=== PATIENT | male | born 1990 | race Caucasian/White ===

== ENCOUNTER 2022-03-29 11:08 | Emergency (ER) | payer BC, SELFPAY ==
[2022-03-29 11:10] VITALS: BP 132/82; PULSE 61; RESP 16; TEMP 36.3; O2SAT 99
[2022-03-29] MEDS: ACETAMINOPHEN 325 MG TABLET 650 MG PO (11:40)
[2022-03-29 12:00] VITALS: BP 124/74; PULSE 70; RESP 16; TEMP 36.5; O2SAT 100
[2022-03-29 12:01] LABS: Strep Group A RT-PCR Negative (Negative)
[2022-03-29 12:08] LABS: Influenza A QL RT-PCR Negative (Negative); Influenza B QL RT-PCR Negative (Negative); SARS-CoV-2 RNA PCR Negative (Negative)
--- NOTE | 2022-03-29 12:36 | ED.URI ---
HPI - URI/Sore Throat General Chief Complaint: Upper Respiratory Infection Stated Complaint: SORE THROAT COUGH Time Seen by Provider: 03/29/22 11:12 Source: patient and RN notes reviewed Mode of arrival: ambulatory Limitations: no limitations History of Present Illness MD elicited complaint: sore throat and nasal congestion Onset (ago): day(s) (1) Consistency: constant Severity: mild Pain scale (0-10): 2 Able to tolerate fluids by mouth: Yes Exacerbating factors: nothing Relieving factors: nothing Associated symptoms: sore throat Treatments prior to arrival: none Related Data Allergies Allergy/AdvReac Type Severity Reaction Status Date / Time No Known Allergies Allergy Verified 03/29/22 11:18 Review of Systems Review of Systems: All systems reviewed & are unremarkable except as noted in HPI and below Constitutional: Constitutional: Reports no additional constitutional complaints Eyes: Eyes: Reports no additional eye complaints ENT: Reports system reviewed and no additional complaints, except as documented and Reports sore throat Cardiovascular: Cardiovascular: Reports no additional cardiovascular complaints Respiratory: Respiratory: Reports no additional respiratory complaints Gastrointestinal: Gastrointestinal: Reports no additional gastrointestinal complaints Musculoskeletal: Musculoskeletal: Reports no additional musculoskeletal complaints Integumentary/Breasts: Skin/Breast: Reports system reviewed and no additional complaints, except as docu Neurologic: Reports system reviewed and no additional complaints, except as documented Psychiatric: Psychiatric: Reports no additional psychiatric complaints Endocrine: Endocrine: Reports no additional endocrine complaints Hematologic/Lymphatic: Hematologic/Lymphatic: Reports no additional hematologic/lymphatic complaints Allergic/Immunologic: Allergic/Immunologic: Reports no additional allergic/immunologic complaints PMFSH Past Medical History Medical History Pharyngitis Viral infection Exam Const: General: healthy appearing and no acute distress Nutritional Appearance: well nourished Orientation/consciousness: patient oriented x3 Limitations: no limitations HENMT: Head: normal to inspection Ears: external ears normal, TM's normal bilaterally and EAC's normal General nose exam: Normal external nose present and Normal nares present Face and sinus: normal facial exam and sinuses nontender Mouth: Yes Normal oral and palatal mucosa present and Yes moist mucous membranes Teeth and gingiva: dentition normal Other: minimal pharyngeal redness Eyes: Conjunctivae: conjunctivae normal Pupils: Equal, round and reactive pupils present EOM: EOMs intact bilaterally Neck: Neck: normal visual inspection, no lymphadenopathy and no meningeal signs Chest: Chest palpation & inspection: normal inspection of the chest Resp: Effort & Inspection: normal respiratory effort Auscultation: clear to auscultation bilaterally Cardio: Rate: regular rate Rhythm: regular rhythm GI: GI Palp: Yes Soft to palpation and No Tenderness to palpation present (GI) Auscultation: normal bowel sounds : General: Yes bladder normal to palpation and Yes no CVA tenderness Back/Spine/Pelvis: Back: no CVA tenderness Skin: General skin exam: normal color Rashes: no rashes Wounds: no wounds Neuro: General: patient oriented x3, moves all extremities, no meningeal signs, no focal motor deficits and CN's II-XI intact bilaterally Cranial nerves: Yes Equal, round and reactive pupils present and Yes Nystagmus not present Speech: normal speech Gait exam (Neuro): Normal gait present Extrem: General: normal to inspection and no pedal edema Psych: Mental Status: mental status grossly normal Affect: normal affect Attitude: cooperative Course Course Emergency Course: Pt was stable in the ED, less sore throat Reevaluation(s) Reeva
== END 2022-03-29 12:49 | disposition home or self-care (01) ==
PROVIDERS: Emergency Provider Emergency Medicine
DX: J06.9 Acute upper respiratory infection, unspecified (principal); B34.9 Viral infection, unspecified; J02.9 Acute pharyngitis, unspecified; Z20.822 Contact with and (suspected) exposure to COVID-19
CPT/HCPCS: 87502; 87651; 99283; A9270; C9803; U0003; U0005

== ENCOUNTER 2022-04-01 18:15 | Emergency (ER) | payer BC, SELFPAY ==
[2022-04-01 18:25] VITALS: BP 129/87; PULSE 60; RESP 14; TEMP 36.5; O2SAT 100
[2022-04-01] MEDS: TETANUS,DIPHTHERIA,AC PERTUSSIS ADULT 0.5 ML (ADACEL) IM (18:49)
--- NOTE | 2022-04-01 18:52 | ED.SKABFB ---
HPI - Skin/Abscess/Foreign Bdy General Chief complaint: Skin/Abscess/Foreign Body Stated complaint: fish hook Time Seen by Provider: 04/01/22 18:17 Source: patient Mode of arrival: ambulatory Limitations: no limitations History of Present Illness HPI narrative: this is a 31-year-old gentleman that presents with a fishhook to the right upper cheek area that current earlier today while he was fishing with his son. Currently there is no redness no erythema no drainage no bleeding no numbness or tingling to the facial area. Onset (ago): hour(s) Tetanus up to date: no Location: face Severity: mild Related Data Allergies Allergy/AdvReac Type Severity Reaction Status Date / Time No Known Allergies Allergy Verified 04/01/22 18:34 Review of Systems Review of Systems: All systems reviewed & are unremarkable except as noted in HPI and below PMFSH Past Medical History Medical History Pharyngitis Viral infection Exam Const: General: healthy appearing and no acute distress Limitations: no limitations HENMT: Head: normal to inspection Other: [place] imbedded to his right upper cheek area Eyes: Conjunctivae: conjunctivae normal Direct Ophthalmoscopy: no photophobia Neck: Neck: normal visual inspection Resp: Effort & Inspection: normal respiratory effort Auscultation: clear to auscultation bilaterally Cardio: Rate: regular rate Rhythm: regular rhythm GI: Auscultation: normal bowel sounds Skin: General skin exam: normal color Wounds: wounds noted Neuro: General: patient oriented x3 Extrem: General: normal to inspection and no clubbing, cyanosis or edema Psych: Mental Status: mental status grossly normal Affect: normal affect Course Course Emergency Course: with 1% lidocaine injected into the right upper cheek area and small lori was made with an 11 blade and the fishhook was removed. Vital Signs Vital signs: Vital Signs Temperature 36.5 C 04/01/22 18:25 Pulse Rate 60 04/01/22 18:25 Respiratory Rate 14 04/01/22 18:25 Blood Pressure 129/87 04/01/22 18:25 Pulse Oximetry 100 04/01/22 18:25 Oxygen Delivery Room Air 04/01/22 18:25 Temperature 36.5 C 04/01/22 18:25 Pulse Rate 60 04/01/22 18:25 Respiratory Rate 14 08/20/22 18:25 Blood Pressure 129/87 04/01/22 18:25 Pulse Oximetry 100 04/01/22 18:25 Oxygen Delivery Room Air 04/01/22 18:25 Procedures Foreign Body Removal Foreign Body #1: Foreign Body Removal Date: 04/01/22 Foreign Body Removal Time: 18:55 Time Out Performed: yes Site: right, face and other Description of foreign body: fish hook Sedation/Analgesia: none Technique: manual removal Confirmed by:: direct visualization Complications: none Post-procedure exam: awake, alert Foreign Body Removal Narrative: 5Cc of 1% lidocaine was injected into the right upper [place] for the cheek area Critical Care Time Critical Care Time Critical Care Time: No Discharge Plan Discharge Clinical Impression: Foreign body (FB) in soft tissue Patient Disposition: Home, Self-Care Condition: Stable Instructions: Antibiotic Form, Soft Tissue Foreign Body (ED) Additional Instructions: can use [id number] Neosporin daily x3 days, and follow up primary care physician if symptoms persist or worsen. Prescriptions: No Action amoxicillin 875 mg tablet 875 mg PO Q12H Qty: 20 0RF Mucinex DM 30-600 mg tablet extended release 12 hr 1 tablet PO Q12H Qty: 20 0RF Follow-up/Referrals: Tyson,Jak Araujo MD [Primary Care Provider] - Time of Disposition: 18:59
[2022-04-01] MEDS: LIDOCAINE HCL 1% LOCAL INJ 10 ML VIAL 7 ML INFILTRATE (18:53)
--- NOTE | 2022-04-01 19:06 | PC.NURSE ---
nurse to nurse report completed with RN Angelique
[2022-04-01 19:16] VITALS: BP 128/75; PULSE 58; RESP 17; TEMP 36.2; O2SAT 100
== END 2022-04-01 19:17 | disposition home or self-care (01) ==
PROVIDERS: Emergency Provider Emergency Medicine; PCP Family Medicine
DX: S01.441A Puncture wound with foreign body of right cheek and temporomandibular area, initial encounter (principal); X58.XXXA Exposure to other specified factors, initial encounter
CPT/HCPCS: 90471; 90715; 99282

== ENCOUNTER 2022-05-19 09:56 | Emergency (ER) | payer BC, SELFPAY ==
--- NOTE | ~2022-05-19 | XR_ITS ---
EXAMINATION: XR hand RT min 3V DATE: 05/19/2022 10:32 INDICATION: Right hand pain. TECHNIQUE: 3 views of right hand were obtained. COMPARISON: None. FINDINGS: Bone alignment is normal. No fracture. Joint spaces are well maintained. IMPRESSION: 1. Normal right hand. Reviewed, dictated and finalized at location B. IMPRESSION: 1. Normal right hand.
[2022-05-19 10:06] VITALS: BP 132/80; PULSE 60; RESP 16; TEMP 36.4; O2SAT 100
--- NOTE | 2022-05-19 10:34 | ED.UPPEXIN ---
HPI - Extremity Injury (Upper) General Chief Complaint: Extremity Injury, Upper Stated Complaint: R hand injury Time Seen by Provider: 05/19/22 10:00 Source: patient and RN notes reviewed Mode of arrival: ambulatory Limitations: no limitations History of Present Illness complaint: injury to: right and hand Onset (ago): minute(s) (30) Other Extremity Injury: Right: hand Other injuries: none Place: outdoors Severity: mild Severity scale (1-10): 4 Relieving factors: immobilization Exacerbating factors: movement of extremity Associated symptoms: denies other symptoms Related Data Allergies Allergy/AdvReac Type Severity Reaction Status Date / Time No Known Allergies Allergy Verified 05/19/22 10:11 Review of Systems Review of Systems: All systems reviewed & are unremarkable except as noted in HPI and below Constitutional: Constitutional: Reports no additional constitutional complaints Eyes: Eyes: Reports no additional eye complaints ENT: Reports system reviewed and no additional complaints, except as documented Cardiovascular: Cardiovascular: Reports no additional cardiovascular complaints Respiratory: Respiratory: Reports no additional respiratory complaints Gastrointestinal: Gastrointestinal: Reports no additional gastrointestinal complaints Musculoskeletal: Musculoskeletal: Reports arthralgias Integumentary/Breasts: Skin/Breast: Reports system reviewed and no additional complaints, except as docu Neurologic: Reports system reviewed and no additional complaints, except as documented Psychiatric: Psychiatric: Reports no additional psychiatric complaints Endocrine: Endocrine: Reports no additional endocrine complaints Hematologic/Lymphatic: Hematologic/Lymphatic: Reports no additional hematologic/lymphatic complaints Allergic/Immunologic: Allergic/Immunologic: Reports no additional allergic/immunologic complaints PMFSH Past Medical History Medical History Contusion of right hand Pharyngitis Viral infection Exam Const: General: healthy appearing, no acute distress and well nourished Nutritional Appearance: well nourished Orientation/consciousness: patient oriented x3 Limitations: no limitations HENMT: Head: normal to inspection Ears: external ears normal, TM's normal bilaterally and EAC's normal Face/Nose/Sinus: Normal external nose present, Normal nares present, normal facial exam and sinuses nontender Face and sinus: normal facial exam and sinuses nontender Mouth: Yes Normal oral and palatal mucosa present and Yes moist mucous membranes Teeth and gingiva: dentition normal Throat: posterior oropharynx normal Eyes: Conjunctivae: conjunctivae normal Pupils: Equal, round and reactive pupils present EOM: EOMs intact bilaterally Neck: Neck: normal visual inspection, no lymphadenopathy and no meningeal signs Chest: Chest palpation & inspection: normal inspection of the chest Resp: Effort & Inspection: normal respiratory effort Auscultation: clear to auscultation bilaterally Cardio: Rate: regular rate Rhythm: regular rhythm GI: GI Palp: Yes Soft to palpation and No Tenderness to palpation present (GI) Auscultation: normal bowel sounds : General: Yes bladder normal to palpation and Yes no CVA tenderness Back/Spine/Pelvis: Back: no CVA tenderness Skin: General skin exam: normal color Rashes: no rashes Wounds: no wounds Neuro: General: patient oriented x3, moves all extremities, no meningeal signs, no focal motor deficits and CN's II-XI intact bilaterally Cranial nerves: Yes Equal, round and reactive pupils present and Yes Nystagmus not present Speech: normal speech Gait exam (Neuro): Normal gait present Extrem: General: no pedal edema Other: dorsal 1st interspace of the right hand minimal 3.2 cm x 3/4 cm abrasion. no marked right hand swelling, deformity or acute redness. full ROM right hand. Psych: Mental Status: mental st
[2022-05-19] MEDS: IBUPROFEN 400 MG TABLET 800 MG PO (10:48)
[2022-05-19 11:19] VITALS: BP 125/75; PULSE 63; RESP 16; TEMP 36.4; O2SAT 100
== END 2022-05-19 11:24 | disposition home or self-care (01) ==
PROVIDERS: Emergency Provider Emergency Medicine
DX: S60.221A Contusion of right hand, initial encounter (principal)
CPT/HCPCS: 73130; 99283; A9270

== ENCOUNTER 2023-04-15 06:12 | Emergency (ER) | payer BC, SELFPAY ==
[2023-04-15] VITALS (9 sets, daily range): BP systolic 108–132; BP diastolic 74–89; PULSE 62–96; RESP 16–18; TEMP 36.8–37; O2SAT 99–100
--- NOTE | ~2023-04-15 | XR_ITS ---
EXAMINATION: XR hand RT min 3V INDICATION: Right hand pain TECHNIQUE: Three views of the right hand are obtained. COMPARISON: 05/19/2022 FINDINGS: There is dorsal dislocation of the bases of the fourth and fifth metacarpals with respect t o the hamate. No fracture is identified. There is medial soft tissue swelling of the hand. IMPRESSION: 1. Dorsal dislocation of the fourth and fifth metacarpals with respect to the hamate. Reviewed, dictated and finalized at location A. IMPRESSION: 1. Dorsal dislocation of the fourth and fifth metacarpals with respect to the h amate.
--- NOTE | ~2023-04-15 | XR_ITS ---
EXAMINATION: XR hand RT min 3V INDICATION: Metacarpal reduction TECHNIQUE: Three views of the right hand are obtained. COMPARISON: 0651 hours FINDINGS: The previously described dorsal dislocations of the fourth and fifth metacarpal bases have been reduced. A tiny osseous fragment is seen on the lateral view dorsal to the carpal metacarpal denis nts. There is associated soft tissue swelling. IMPRESSION: 1. Reduced dislocations of the fourth and fifth metacarpal bases. 2. Small dorsal fracture fragment of unclear origin, possibly the fourth metacarpal base. Reviewed, dictated and finalized at location A. IMPRESSION: 1. Reduced dislocations of the fourth and fifth metacarpal bases. 2. Small dorsal fracture fragment of unclear origin, possibly the fourth metaca rpal base.
--- NOTE | 2023-04-15 06:39 | ED.UPPEXIN ---
HPI - Extremity Injury (Upper) General Chief Complaint: Extremity Injury, Upper <Rich Echavarria MD - Last Filed: 04/15/23 07:20> Stated Complaint: Right Hand Injury <Rich Echavarria MD - Last Filed: 04/15/23 07:20> Time Seen by Provider: 04/15/23 07:29 <Rich Echavarria MD - Last Filed: 04/15/23 07:20> Source: patient <Rich Echavarria MD - Last Filed: 04/15/23 07:20> Mode of arrival: ambulatory <Rich Echavarria MD - Last Filed: 04/15/23 07:20> Limitations: no limitations <Rich Echavarria MD - Last Filed: 04/15/23 07:20> History of Present Illness HPI narrative: 32-year-old male presents to the ER with -- right hand deformity. He has deformity over the 4th and the 5th metacarpals. He punched a wall 1 hour ago. <Rich Echavarria MD - Last Filed: 04/15/23 07:20> MD complaint: injury to: right and hand <Rich Echavarria MD - Last Filed: 04/15/23 07:20> Onset (ago): hour(s) ( 1 hour ago) <Rich Echavarria MD - Last Filed: 04/15/23 07:20> Other injuries: none <Rich Echavarria MD - Last Filed: 04/15/23 07:20> Handedness: right <Rich Echavarria MD - Last Filed: 04/15/23 07:20> Place: home <Rich Echavarria MD - Last Filed: 04/15/23 07:20> Severity: severe <Rich Echavarria MD - Last Filed: 04/15/23 07:20> Relieving factors: immobilization <Rich Echavarria MD - Last Filed: 04/15/23 07:20> Exacerbating factors: movement of extremity <Rich Echavarria MD - Last Filed: 04/15/23 07:20> Context: direct blow <Rich Echavarria MD - Last Filed: 04/15/23 07:20> Associated symptoms: denies other symptoms <Rich Echavarria MD - Last Filed: 04/15/23 07:20> Treatments prior to arrival: cold therapy <Rich Echavarria MD - Last Filed: 04/15/23 07:20> Related Data Allergies/Adverse Reactions: Allergies Allergy/AdvReac Type Severity Reaction Status Date / Time No Known Allergies Allergy Verified 05/19/22 10:11 <Rich Echavarria MD - Last Filed: 04/15/23 07:20> Review of Systems Review of Systems: All systems reviewed & are unremarkable except as noted in HPI and below <Rich Echavarria MD - Last Filed: 04/15/23 07:20> Constitutional: Constitutional: Reports as per HPI and Reports no additional constitutional complaints <Rich Echavarria MD - Last Filed: 04/15/23 07:20> Eyes: Eyes: Reports as per HPI and Reports no additional eye complaints <Rich Echavarria MD - Last Filed: 04/15/23 07:20> ENT: Reports system reviewed and no additional complaints, except as documented and Reports as per HPI <Rich Echavarria MD - Last Filed: 04/15/23 07:20> Cardiovascular: Cardiovascular: Reports as per HPI and Reports no additional cardiovascular complaints <Rich Echavarria MD - Last Filed: 04/15/23 07:20> Respiratory: Respiratory: Reports as per HPI and Reports no additional respiratory complaints <Rich Echavarria MD - Last Filed: 04/15/23 07:20> Gastrointestinal: Gastrointestinal: Reports as per HPI and Reports no additional gastrointestinal complaints <Rich Echavarria MD - Last Filed: 04/15/23 07:20> Genitourinary: Genitourinary: Reports no additional male genitourinary complaints and Reports as per HPI <Rich Echavarria MD - Last Filed: 04/15/23 07:20> Musculoskeletal: Musculoskeletal: Reports no additional musculoskeletal complaints and Reports as per HPI <Rich Echavarria MD - Last Filed: 04/15/23 07:20> Integumentary/Breasts: Skin/Breast: Reports system reviewed and no additional complaints, except as docu and Reports as per HPI <Rich Echavarria MD - Last Filed: 04/15/23 07:20> Neurologic: Reports system reviewed and no additional complaints, except as documented and Reports as per HPI <Rich Echavarria MD - Last Filed: 04/15/23 07:20> Psychiatric: Psychiatric: Reports no additional psychiatric complaints and Reports as per HPI <Rich Araujo Ch
[2023-04-15] MEDS: ONDANSETRON HCL ODT 4 MG TABLET PO (06:55)
[2023-04-15] MEDS: MORPHINE SULFATE (*CRX) 4 MG/ML INJ 2 MG IM (06:55)
== END 2023-04-15 10:26 | disposition home or self-care (01) ==
PROVIDERS: Emergency Provider Emergency Medicine
DX: S60.221A Contusion of right hand, initial encounter (principal); W22.09XA Striking against other stationary object, initial encounter
CPT/HCPCS: 26670; 73130; 99285; A9270; J2270

== ENCOUNTER 2023-04-24 11:57 | Outpatient (CLI) | payer BC, SELFPAY ==
--- NOTE | ~2023-04-24 | XR_ITS ---
Right Hand Technique: PA, oblique, and lateral views were obtained. Clinical History: Fracture follow-up COMPARISON: 04/15/2023 Findings: Stable small dorsal fracture fragment at the region of the carpal metacarpal joints on late ral view. Joint spaces are preserved. Soft tissues are unremarkable. Impression: Stable small dorsal fracture fragment at the region of the carpometacarpal articulations on lateral v iew. Reviewed, dictated and finalized at location M. Impression: Stable small dorsal fracture fragment at the region of the carpometacarpal shyann culations on lateral view.
== END 2023-04-24 11:58 | disposition home or self-care (01) ==
LOC: CHSIMG 12:01
PROVIDERS: PCP Physician Assistant; Visit Provider Physician Assistant
DX: S62.398A Other fracture of other metacarpal bone, initial encounter for closed fracture (principal)
CPT/HCPCS: 73130